=== PATIENT | female | born 1975 | race Caucasian/White ===

== ENCOUNTER 2018-06-18 10:39 | Emergency (ER) | payer MEDICAID ==
[~2018-06-18] VITALS: Ht 157.5 cm; Wt 90.7 kg
[2018-06-18 10:41] VITALS: Ht 157.5 cm; Wt 90.7 kg
[2018-06-18 11:59] LABS: BASOPHIL % 0.3 % (0-2); PLATELET COUNT 259 x10^3mcL (130-400); RED CELL DISTRIBUTION WIDTH 16.6 % (11.5-14.5)
[2018-06-18 12:15] LABS: CARBON DIOXIDE 24.3 mmol/L (21-32); CHLORIDE SERUM 105 mmol/L (98-107); CREATININE SERUM 0.5 mg/dL (0.6-1.0); GFR1 > 60 mL/min; GLUCOSE SERUM 118 mg/dL (74-106); POTASSIUM SERUM 4.2 mmol/L (3.5-5.1); SODIUM SERUM 138 mmol/L (136-145)
[2018-06-18 12:27] LABS: ALKALINE PHOSPHATASE 95 U/L (46-116); ALT/SGPT 78 U/L (14-59); AST/SGOT 45 U/L (15-37); BILIRUBIN TOTAL 0.3 mg/dL (0.20-1.00); LIPASE 153 IU/L (73-393); T4(THYROXINE) 5.7 ug/dL (4.7-13.3); TOTAL PROTEIN, SERUM 7.9 g/dL (6.4-8.2)
[2018-06-18 12:30] LABS: ALBUMIN 2.8 g/dL (3.4-5.0); CHOLESTEROL 247 mg/dL (<200); HDL CHOLESTEROL 63 mg/dL (40-60)
[2018-06-18 12:44] LABS: AMPHETAMINE QUAL UR NONE DETECTED (See below)
[2018-06-18 13:08] LABS: microscopic required? YES; urine erythrocyte 3+ (NEGATIVE)
[2018-06-18 15:12] VITALS: BP 124/61
== END 2018-06-18 15:12 | disposition home or self-care (01) ==
LOC: ED 10:39
PROVIDERS: Emergency Medicine
DX: J10.1 Influenza due to other identified influenza virus with other respiratory manifestations (principal); M06.9 Rheumatoid arthritis, unspecified; E66.9 Obesity, unspecified
CPT/HCPCS: 82962; 87804; J1100; J1885